=== PATIENT | male | born 1980 | race African-American/Black ===

== ENCOUNTER 2020-05-22 14:06 | Emergency (ER) | payer MEDICAID, OTHER ==
[~2020-05-22] VITALS: Ht 167.6 cm; Wt 62.0 kg
[2020-05-22 14:08] VITALS: BP 111/69
== END 2020-05-22 19:05 | disposition home or self-care (01) ==
LOC: ER 14:27
DX: S13.4XXA Sprain of ligaments of cervical spine, initial encounter (principal); M54.5 Low back pain; V43.52XA Car driver injured in collision with other type car in traffic accident, initial encounter; Y93.89 Activity, other specified; Y92.488 Other paved roadways as the place of occurrence of the external cause
CPT/HCPCS: 72040; 73030; 99284

== ENCOUNTER 2021-01-05 23:59 | Emergency (ER) | payer MEDICAID, OTHER ==
[~2021-01-05] VITALS: Ht 167.6 cm; Wt 65.0 kg
[2021-01-06] MEDS ORDERED: KETOROLAC 30MG/ML VIAL IM ONE (00:45)
[2021-01-06] MEDS ORDERED: CYCLOBENZAPRINE 10MG TABLET PO ONE (00:45)
[2021-01-06] MEDS ORDERED: HYDROCODONE/ACETAMINOPHEN 5/325MG TABLET PO ONE (02:00)
[2021-01-06] MEDS ORDERED: NAPR-1176 MT (02:19)
[2021-01-06] MEDS ORDERED: HYDR-4346 MT (02:19)
[2021-01-06 02:35] VITALS: BP 119/82
== END 2021-01-06 02:37 | disposition home or self-care (01) ==
LOC: ER 23:59
DX: M54.5 Low back pain (principal); Z87.828 Personal history of other (healed) physical injury and trauma
CPT/HCPCS: 96372; 99283; J1885

== ENCOUNTER 2021-05-26 13:41 | Emergency (ER) | payer MEDICAID ==
[~2021-05-26] VITALS: Ht 170.2 cm; Wt 61.0 kg
[~2021-05-26 13:41] MED LIST: HYDR-4346 MT; NAPR-1176 MT
[2021-05-26] MEDS ORDERED: FENTANYL CITRATE/PF 50MCG/ML 2ML VIAL IV ONE ×2 (13:45→15:00)
[2021-05-26] MEDS ORDERED: TETANUS, DIPHTHERIA, PERTUSSIS VAC/PF 0.5ML (>7YR OLD) IM ONE (13:45)
[2021-05-26 14:20] LABS: BASOPHILS % 0.6 % (0.0-2.0); EOSINOPHILS % 1.7 % (0.0-5.0); LYMPHOCYTES % 47.1 % (20.0-50.0); MEAN CORPUSCULAR HEMOGLOBIN 30.7 pg (28.0-32.0); MEAN CORPUSCULAR VOLUME 88.3 fL (80.0-94.0); MEAN PLATELET VOLUME 7.6 fl (7.4-10.4); MONOCYTES % 7.6 % (2.0-8.0); PLATELET 244 x1000/uL (130-400); RED BLOOD CELL COUNT 5.21 mill/uL (4.7-6.1); RED CELL DISTRIBUTION WIDTH 12.8 % (11.6-14.6)
[2021-05-26 14:26] LABS: CHLORIDE 111 mEq/L (98-107)
[2021-05-26 16:48] VITALS: BP 127/73
== END 2021-05-26 17:13 | disposition home or self-care (01) ==
LOC: ER 13:41
DX: S81.032A Puncture wound without foreign body, left knee, initial encounter (principal); X93.XXXA Assault by handgun discharge, initial encounter; Y93.89 Activity, other specified; Y92.512 Supermarket, store or market as the place of occurrence of the external cause
CPT/HCPCS: 29505; 36415; 71045; 73552; 73560; 80048; 85025; 90471; 90715; 96374; 96376; 99284; J3010